=== PATIENT | female | born 1970 | race Caucasian/White ===

== ENCOUNTER → 2017-01-04 | Outpatient (CLI) | payer OTHER ==
[~2017-01-04] MED LIST: BACTRIM DS1 TAB PO; COLACE100 MG PO; DILAUDID 2MG(HYD2 MG PO; ECOTRIN325 MG PO; KLOR-CON M2020 MEQ PO; LASIX40 MG PO; LEVOTHROID(SYN75 MCG PO; LOMOTIL1 TAB PO; LYRICA75 MG PO; MELOXICAM15 MG PO; MIRALAX17 GM PO; NORCO 10-325 T1 EACH PO; PEPCID40 MG PO; PERCOCET 5-3251 EACH PO; PROTONIX40 MG PO; SEROQUEL XR300 MG PO; TRAZODONE HCL300 MG PO; VALIUM5 MG PO; VIIBRYD40 MG PO; ZYLOPRIM300 MG PO
== END | disposition disaster alternative care site (69) ==
LOC: GRAD 07:34
DX: K29.80 Duodenitis without bleeding (principal); K22.4 Dyskinesia of esophagus

== ENCOUNTER → 2017-01-09 | Day surgery (SDC) | payer OTHER ==
[~2017-01-09] VITALS: Ht 160 cm; Wt 103.4 kg
== END | disposition disaster alternative care site (69) ==
LOC: GPOC 01-08 17:00 → GEND 07:03 → GPOC 17:00
PROC: 0DB58ZX Excision of Esophagus, Via Natural or Artificial Opening Endoscopic, Diagnostic (ICD-10-PCS; principal; 2017-01-09)
PROC: 0DB68ZX Excision of Stomach, Via Natural or Artificial Opening Endoscopic, Diagnostic (ICD-10-PCS; 2017-01-09)
DX: K31.89 Other diseases of stomach and duodenum (principal); E03.9 Hypothyroidism, unspecified; M19.90 Unspecified osteoarthritis, unspecified site; Z98.890 Other specified postprocedural states
CPT/HCPCS: J2001; J7030

== ENCOUNTER → 2017-01-25 | Outpatient (CLI) | payer OTHER | END | disposition disaster alternative care site (69) | LOC: GRAD 09:02 | DX: R13.10 Dysphagia, unspecified (principal); K22.2 Esophageal obstruction; K22.4 Dyskinesia of esophagus ==

== ENCOUNTER → 2017-02-07 | Day surgery (SDC) | payer OTHER ==
[~2017-02-07] VITALS: Ht 160 cm; Wt 107.6 kg
--- NOTE | ~2017-02-07 | OR ---
PATIENT'S NAME: LEONARDO CAROLINA [facility] AGE: 46 Y [address] ROOM: [place] [address] LOCATION[facility] ADMIT DATE: 02/07/2017 OR/Procedure Report DISCHARGE DATE: FAMILY PHYSICIAN: Caitlin Charles NP ATTENDING PHYSICIAN: DEBI MOCK SURGEON: Viktor Gao MD [employer] SUPERVISOR: DATE OF PROCEDURE: 02/07/2017 PROCEDURES: Esophagogastroduodenoscopy with dilation. INDICATION: Dysphagia. MEDICATIONS: Please see anesthesiology record for details. CONSENT: The risks/benefits/alternatives were discussed and the patient or her power of workers compensation attorney expressed understanding and agreed to proceed. Informed consent was obtained and placed in the chart. Time-out was completed prior to starting the procedure. PROCEDURE: Patient was placed in the left lateral decubitus position. One- lead EKG monitoring was used along with intermittent blood pressure monitoring and pulse oximetry. Bite block was placed in the patient's mouth. The above medications were given and titrated to response. Once adequate sedation was completed, the endoscope was passed through the patient's mouth into the posterior oropharynx. The endoscope was then passed into the esophagus, stomach and duodenal bulb. The duodenum was examined through the third portion. The endoscope was then withdrawn into the stomach. In the stomach, retroflexion was completed. The scope was then straightened and withdrawn from the patient. The patient tolerated the procedure well. There were no complications. SUMMARY OF FINDINGS: 1. Torturous distal esophagus. 2. Hypertensive LES, initially had to hold pressure to allow passage of the endoscope. However on re-evaluation, there was no true stricture. 3. Normal stomach. 4. Normal duodenal mucosa. However in the sweep, there is a mild narrowing that made passage slightly difficult. However, this is not a true stricture. Multiple additional passes were easier to perform without any resistance. 5. Esophageal dilation was performed up to 15 mm. Post dilation, there was a small superficial tear noted. ASSESSMENT AND PLAN: Dysphagia. I am highly suspicious that this patient has PATIENT'S NAME: LEONARDO CAROLINA [facility] AGE: 46 Y [address] ROOM: [place] [address] LOCATION: [facility] ADMIT DATE: 02/07/2017 OR/Procedure Report DISCHARGE DATE: FAMILY PHYSICIAN: Caitlin Charles NP ATTENDING PHYSICIAN: DEBI MOCK achalasia given the hypertensive lower esophageal sphincter. I recommend esophageal manometry for further evaluation. The esophageal manometry cannot be performed in [place]; therefore, we will plan to refer her to my office in [place] to get this testing done. J MD YESENIA OLIVERA/kusuml /[id number] d: 02/07/1722 t: 02/11/17 1428, OPERATIVE SUMMARY
--- NOTE | ~2017-02-07 | OR ---
PATIENT'S NAME: LEONARDO CAROLINA [facility] AGE: 46 Y [address] ROOM: [place] [address] LOCATION: [facility] ADMIT DATE: 02/07/2017 OR/Procedure Report DISCHARGE DATE: FAMILY PHYSICIAN: Caitlin Charles NP ATTENDING PHYSICIAN: DEBI MOCK SURGEON: Viktor Gao MD [employer] SALES RECORD SUPERVISOR: DATE OF PROCEDURE: 02/07/2017 ADDENDUM: This is an addendum to the procedure report noted on 02/07/2017. Under #5 of summary finding, it should read esophageal balloon dilation was performed up to 15 mm. Viktor GAO MD JRT/modl /[id number] d: 02/11/172050 t: 02/14/17 1359, OPERATIVE SUMMARY
== END ==
LOC: GOPP 02-06 07:00 → GEND 02-06 08:00 → GOPP 07:00
PROC: 0D758ZZ Dilation of Esophagus, Via Natural or Artificial Opening Endoscopic (ICD-10-PCS; principal; 2017-02-07)
DX: R13.10 Dysphagia, unspecified (principal); E03.9 Hypothyroidism, unspecified; M19.90 Unspecified osteoarthritis, unspecified site; M79.7 Fibromyalgia; Z96.651 Presence of right artificial knee joint; Z88.1 Allergy status to other antibiotic agents; Z79.899 Other long term (current) drug therapy; Z88.8 Allergy status to other drugs, medicaments and biological substances
CPT/HCPCS: C1726; J7030